=== PATIENT | male | born 1965 | race Caucasian/White ===

== ENCOUNTER 2018-07-06 15:39 | Inpatient (IN) | payer BC ==
[2018-07-06 15:59] LABS: PLATELET COUNT 266 10^3/uL (150-400)
[2018-07-06] MEDS ORDERED: ONDANSETRON 4 MG/2 ML VIAL IVP ONE (16:03)
--- NOTE | 2018-07-06 16:06 | EDPHY ---
H & P Time Seen by Provider: 07/06/18 15:50 HPI/ROS: CHIEF COMPLAINT: Chest pain HISTORY OF PRESENT ILLNESS: 52-year-old male presents with chest pain. Sudden onset of substernal chest pain at 2:00 p.m. while driving. The pain has been moderate and persistent since onset. Associated with shortness of breath. Took 325 aspirin prior to arrival without relief. No change with exertion, deep inspiration, movement or with eating. No dizziness, diaphoresis or other associated symptoms. Exercises regularly, most recently this morning. No prior similar symptoms. Cardiac risk factors negative. Nonsmoker; no family history; no hypertension, diabetes or hypercholesterolemia. REVIEW OF SYSTEMS: complete 10 point ROS reviewed and is negative except for the noted elements in the HPI Source: Patient - Social History Alcohol Use: Sober Drug Use: None Additional Social History: - Physical Exam Exam: General Appearance: Alert, pleasant, appears uncomfortable Eyes: Pupils equal and round, no conjunctival pallor or injection ENT, Mouth: Mucous membranes moist Neck: Normal inspection Respiratory: Lungs are clear to auscultation Cardiovascular: Regular rate and rhythm, no murmur gallop or rub Gastrointestinal: Abdomen is soft and nontender Neurological: A&O, nonfocal exam Skin: Warm and dry, no rash Extremities: Nontender, no pedal edema Psychiatric: Anxious Constitutional: Initial Vital Signs Temperature (C) 36.9 C 07/06/18 15:59 Heart Rate 76 07/06/18 15:59 Respiratory Rate 16 07/06/18 15:59 Blood Pressure 167/102 H 07/06/18 15:59 O2 Sat (%) 100 07/06/18 15:59 O2 Delivery Mode Room Air O2 (L/minute) 2 Allergies/Adverse Reactions: No Known Allergies Allergy (Unverified 07/06/18 16:17) Home Medications: Medication Instructions Recorded NK [No Known Home Meds] 07/06/18 Medical Decision Making - Diagnostics EKG Interpretation: EKG interpreted by me reveals normal sinus rhythm, rate 77, poor R-wave progression, prominent T-waves in lead V3 and V4, concerning for hyper acute T- waves. Interpretation: Abnormal EKG Repeat EKG is unchanged. Imaging Results: Imaging Impressions Chest X-Ray 07/06/18 15:52 Impression: Normal chest x-ray. Imaging: I viewed and interpreted images myself ED Course/Re-evaluation: This patient presents with substernal chest pain. Stat EKG reveals poor R-wave progression with prominent T-waves anteriorly, c/w hyperacute T waves. Concerning for acute coronary syndrome. Morphine and Zofran IV given for pain control. Feels better after morphine. Repeat EKG is unchanged. Chest x-ray is unremarkable. Stat echocardiogram reveals normal wall motion. Dr. Shadi Henao was consulted because of EKG changes and chest pain, concern for ACS. Dr. Henao saw the patient in the emergency department and plans to take him to the cardiac catheterization lab. All the laboratory/radiologic results and the plan were discussed with the patient and his . I spent a total of 35 minutes of critical care time in obtaining history, performing a physical exam, bedside monitoring of interventions, collecting and interpreting tests and discussion with consultants but not including time spent performing procedures. Organ at risk: Cardiac Differential Diagnosis: Differential diagnosis includes though it is not limited to pneumonia, pneumothorax, pulmonary embolism, aortic dissection, pericarditis, acute coronary syndrome. - Data Points Laboratory Results: Laboratory Results 07/06/18 15:45 07/06/18 15:45 07/06/18 07/06/18 07/06/18 15:55 15:45 15:45 WBC RBC Hgb Hct MCV MCH MCHC RDW Plt Count MPV Neut % (Auto) Lymph % (Auto) [place] % (Auto) Eos % (Auto) Baso % (Auto) Nucleat RBC Rel Count Absolute Neuts (auto) Absolute Lymphs (auto) Absolute Monos (auto) Absolute Eos (auto) Absolute Basos (auto) Absolute Nucleated RBC Immature Gran % Immature Gran # D-Dimer Sodium Potassium Chloride Carbon Dioxide Anion Gap BUN Creatinine Estimated GFR Glucose Hemoglobin A1c 5.4 % % (4.0-6.0) Estim Average Glucose 108 mg/dL mg/dL (68-126) Calcium POC Troponin I 0.01 ng/mL ng/mL (0.00-0.08) NT-Pro-B Natriuret Pep Triglycerides 88 mg/dL mg/dL (40-150) Cholesterol 221 mg/dL H mg/dL (140-220) Cholesterol Risk Factr 0.8 (0.2-1.0) LDL Cholesterol, Calc 146 mg/dL H mg/dL (80-100) LDL Risk Factor 1.0 (0.2-1.0) VLDL Cholesterol 18 mg/dL mg/dL (8-25) Non-HDL Cholesterol 164 mg/dL H mg/dL (90-129) HDL Cholesterol 57 mg/dL mg/dL (40-65) LDL/HDL Ratio 2.57 RATIO RATIO (1.00-3.64) Cholesterol/HDL Ratio 3.88 RATIO RATIO (1.00-4.97) 07/06/18 07/06/18 07/06/18 15:45 15:45 15:45 WBC 13.70 10^3/uL H 10^3/uL (3.80-9.50) RBC 5.13 10^6/uL 10^6/uL (4.40-6.38) Hgb 16.6 g/dL g/dL (13.7-17.5) Hct 45.4 % % (40.0-51.0) MCV 88.5 fL fL (81.5-99.8) MCH 32.4 pg pg (27.9-34.1) MCHC 36.6 g/dL g/dL (32.4-36.7) RDW 11.8 % % (11.5-15.2) Plt Count 266 10^3/uL 10^3/uL (150-400) MPV 9.2 fL fL (8.7-11.7) Neut % (Auto) 77.9 % H % (39.3-74.2) Lymph % (Auto) 16.6 % % (15.0-45.0) [place] % (Auto) 4.7 % % (4.5-13.0) Eos % (Auto) 0.1 % L % (0.6-7.6) Baso % (Auto) 0.4 % % (0.3-1.7) Nucleat RBC Rel Count 0.0 % % (0.0-0.2) Absolute Neuts (auto) 10.69 10^3/uL H 10^3/uL (1.70-6.50) Absolute Lymphs (auto) 2.27 10^3/uL 10^3/uL (1.00-3.00) Absolute Monos (auto) 0.64 10^3/uL 10^3/uL (0.30-0.80) Absolute Eos (auto) 0.01 10^3/uL L 10^3/uL (0.03-0.40) Absolute Basos (auto) 0.05 10^3/uL 10^3/uL (0.02-0.10) Absolute Nucleated RBC 0.00 10^3/uL 10^3/uL (0-0.01) Immature Gran % 0.3 % % (0.0-1.1) Immature Gran # 0.04 10^3/uL 10^3/uL (0.00-0.10) D-Dimer < 0.27 ug/mLFEU ug/mLFEU (0.00-0.50) Sodium 139 mEq/L mEq/L (135-145) Potassium 4.0 mEq/L mEq/L (3.5-5.2) Chloride 102 mEq/L mEq/L (97-110) Carbon Dioxide 22 mEq/l mEq/l (22-31) Anion Gap 15 mEq/L H mEq/L (6-14) BUN 15 mg/dL mg/dL (7-23) Creatinine 1.0 mg/dL mg/dL (0.7-1.3) Estimated GFR > 60 Glucose 130 mg/dL H mg/dL (70-100) Hemoglobin A1c Estim Average Glucose Calcium 10.0 mg/dL mg/dL (8.5-10.4) POC Troponin I NT-Pro-B Natriuret Pep 41 pg/mL pg/mL (0-125) Triglycerides Cholesterol Cholesterol Risk Factr LDL Cholesterol, Calc LDL Risk Factor VLDL Cholesterol Non-HDL Cholesterol HDL Cholesterol LDL/HDL Ratio Cholesterol/HDL Ratio Medications Given: Metoprolol Tartrate (Lopressor) 12.5 mg PO BID ENID Stop: 01/02/19 20:59 Last Admin: 07/06/18 20:27 Dose: 12.5 mg Morphine Sulfate (Morphine) 1 - 2 mg IVP Q1HR PRN PRN Reason: Pain, Severe Unable to Take PO Stop: 07/16/18 18:10 Last Admin: 07/06/18 19:45 Dose: 2 mg Discontinued Medications Aspirin Buffered (Aspirin Ec) 325 mg PO ONCE ONE Stop: 07/06/18 18:29 Last Admin: 07/06/18 20:28 Dose: 325 mg Morphine Sulfate (Morphine) 4 mg IVP EDNOW ONE Stop: 07/06/18 16:04 Last Admin: 07/06/18 16:09 Dose: 4 mg Ondansetron HCl (Zofran) 4 mg IVP EDNOW ONE Stop: 07/06/18 16:04 Last Admin: 07/06/18 16:09 Dose: 4 mg Ticagrelor (Brilinta) 180 mg PO ONCE ONE Stop: 07/06/18 18:29 Last Admin: 07/06/18 20:28 Dose: 180 mg Point of Care Test Results: Chemistry 07/06/18 15:55 POC Troponin I 0.01 ng/mL ng/mL (0.00-0.08) Departure - Departure Disposition: To OP Cath/Surgery Clinical Impression: Acute coronary syndrome Condition: Serious
[2018-07-06] MEDS ORDERED: MIDAZOLAM 2 MG/2 ML VIAL ONE ×2 (17:12→17:43)
[2018-07-06] MEDS ORDERED: LIDOCAINE 1% 300 MG/30 ML SDV ONE (17:12)
[2018-07-06] MEDS ORDERED: fentaNYL 100 MCG/2 ML INJ ONE ×2 (17:12→17:43)
[2018-07-06] MEDS ORDERED: IOPAMIDOL (ISOVUE-370) 150 ML BTL IV ONE (17:13)
[2018-07-06] MEDS ORDERED: BIVALIRUDIN 250 MG/5 ML VIAL IV ONE (17:42)
[2018-07-06] MEDS ORDERED: EPTIFIBATIDE 200 MG/100 ML BOTTLE IV ONE (17:52)
[2018-07-06] MEDS ORDERED: OXYCODONE/APAP 5/325 TAB PO PRN (18:11)
[2018-07-06] MEDS ORDERED: ONDANSETRON DISINTEGRATING 4 MG TAB PO PRN (18:11)
[2018-07-06] MEDS ORDERED: ACETAMINOPHEN 325 MG TAB PO PRN (18:11)
[2018-07-06] MEDS ORDERED: ONDANSETRON 4 MG/2 ML VIAL IVP PRN (18:11)
[2018-07-06] MEDS ORDERED: 1/2 NS 1,000 ML IV SCH (18:15)
[2018-07-06] MEDS ORDERED: ASPIRIN EC 325 MG TAB PO ONE (18:28)
[2018-07-06] MEDS ORDERED: TICAGRELOR 90 MG TAB PO ONE (18:28)
[2018-07-06] MEDS ORDERED: NITROGLYCERIN 0.4 MG BTL SL PRN (18:28)
[2018-07-06] MEDS ORDERED: ATROPINE SULFATE 1 MG/10 ML SYR IVP PRN (18:28)
[2018-07-06] MEDS ORDERED: TICAGRELOR 90 MG TAB ONE (18:29)
[2018-07-06] MEDS: METOPROLOL TARTRATE 25 MG TAB PO SCH (20:27)
--- NOTE | 2018-07-06 21:00 | CPEKG ---
Test Reason : OPEN Blood Pressure : / mmHG Vent. Rate : 075 BPM Atrial Rate : 075 BPM P-R Int : 171 ms QRS Dur : 084 ms QT Int : 415 ms P-R-T Axes : 051 061 039 degrees QTc Int : 464 ms Sinus rhythm poor R wave progression prominent T waves in leads V3 and V4 Confirmed by Gabby Haider ([id number]) on 07/06/2018 9:00:03 PM Referred By: Confirmed By:Gabby Haider
[2018-07-07 04:58] LABS: PLATELET COUNT 229 10^3/uL (150-400)
[2018-07-07] MEDS ORDERED: TICAGRELOR 90 MG TAB PO SCH (06:30)
--- NOTE | 2018-07-07 06:54 | GCON ---
DATE OF CONSULTATION: 07/06/2018 INDICATIONS: Chest pain. HISTORY OF PRESENT ILLNESS: The patient is a pleasant 52-year-old male seen in consultation in the e mergency department. At his baseline, he is very healthy. He is active and he does not take any med ications. He comes to the emergency department with complaints of chest pain. He states that he was feeling well until about 3 hours prior to admission. At that time, he developed the abrupt onset of precordial chest pressure, described as a heavy sensation as if "somebody was sitting on my chest." He had radiation of his symptoms up to the throat and both jaws. He thinks he may have some sensati on of both shoulders and between the shoulder blades. With this, he became very short of breath. He had a sensation as if "something was terribly wrong." He took an aspirin and tried to lay down at h ome. There, he continued to have symptoms and mild dyspnea. As a result, he came to the emergency d epartment here. On arrival here, he was hemodynamically stable. His blood pressure was high at 167/ 102 with a mean of 123 and a heart rate of 76 beats per minute with oxygen saturations on 2 L 100%. He was afebrile. His initial electrocardiogram done at 1547 demonstrated sinus rhythm with late R-wa ve progression and nonspecific ST and T changes. A followup ECG done at 4:31 also demonstrated sinus rhythm with loss of the anterior voltage, suspicious for an anterior infarct, age undetermined. He states he continues to have ongoing chest discomfort. His initial troponin was noted to be negative. His N-terminal proBNP was 41. A basic metabolic panel, D-dimer were normal. His CBC was significa nt for mild leukocytosis at 13.7. Chest x-ray was unremarkable. A bedside echo was done. On that echocardiogram, there was a suggestion of mild subtle inferoseptal hypokinesis. Visualization of the aortic valve revealed that it was trileaflet. The ascending aorta was normal caliber as was the descending aorta. Limited images of the arch indicated that he had a normal arch diameter as well. REVIEW OF SYSTEMS: A full 10-point review of systems was performed and was otherwise negative. PAST MEDICAL HISTORY: He states he is healthy, with no medical problems. MEDICATIONS: He takes no medications. SURGICAL HISTORY: Has no surgical history. SOCIAL HISTORY: He is , accompanied by his . They have 4 daughters together. 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 He does not smoke. He drinks alcohol socially. Likes to exercise r egularly and usually does so on a daily basis. FAMILY HISTORY: Is not significant for premature atherosclerosis. PHYSICAL EXAMINATION: VITALS: On my arrival, his blood pressure is 166/19 with a heart rate of 82 a nd room air saturations of 98%. GENERAL: He was an anxious-appearing male in mild distress complain ing of chest discomfort. HEENT: Normocephalic, atraumatic. He has anicteric sclerae. Oropharynx u nremarkable. His carotids are 2+ bilaterally with no carotid bruits. He has no JVD or adenopathy. RESPIRATORY: He is breathing easily, resting comfortably, using no accessory muscles. On auscultati on, has clear lung bourgeois bilaterally. CARDIAC: Precordial inspection is unremarkable. PMI is nond isplaced. On auscultation, he has a regular rate and rhythm without murmurs, gallops, or rubs. ABDO MEN: Soft, nontender with normoactive bowel sounds. He has no masses or hepatosplenomegaly. VASCUL ATURE: He has 2+ radial dorsal pedal and posterior tibial pulses. He has 2+ femoral arterial pulses . NEUROLOGIC: He is alert and oriented with a pleasant mood and affect. Moves all 4 limbs spontane ously. DATA BASE: See HPI. IMPRESSION: The patient is 52 years old, with a benign cardiovascular risk factor in overall good he alth who presents to the emergency department with a very concerning history of abrupt onset chest di scomfort. He is having ongoing symptoms of chest discomfort currently. He has an abnormal ECG indic ating the possibility of a previous anterior infarct. He does not, however, have dynamic ST or T tejal nges. Bedside echocardiogram does not suggest findings consistent with a dissection. PLAN: Given the patient's ongoing chest discomfort, he will be brought to the cardiac catheterizatio n laboratory. Further recommendations will be made pending the outcome of that study. /[id number]/MODL
--- NOTE | 2018-07-07 06:55 | CPIP ---
DATE OF PROCEDURE: 07/06/2018 PROCEDURES: 1. Coronary angiography. 2. Stenting of left anterior descending coronary artery with Synergy drug-eluting stent. INDICATION: Acute coronary syndrome. ACCESS AND CORONARY ANGIOGRAPHY: Access and coronary angiography were performed by Dr. Shadi Henao. Coronary angiography was notable for single-vessel disease involving the proximal left anterior emily cending coronary artery. I was asked to perform percutaneous coronary intervention of this lesion. PERCUTANEOUS CORONARY INTERVENTION: Left anterior descending coronary artery: A 6-Hebrew EBU 3.5 ca theter was advanced to the left main coronary artery and images obtained. Angiography confirmed the presence of a 99% stenosis of the proximal left anterior descending coronary artery representing an a cute thrombotic plaque. A Luge wire was placed in the distal vessel and position verified by angiogr aphy. Thrombectomy was performed on 3 occasions. Followup angiography demonstrated residual stenosi s but significant reduction in thrombus burden. A 4.0 x 28 Synergy drug-eluting stent was then place d across the lesion and deployed. Followup angiography demonstrated LIZETH-3 flow with no residual gregg nosis. COMPLICATIONS: None. CONCLUSIONS: 1. Single-vessel coronary artery disease involving the left anterior descending coronary artery. 2. Status post successful thrombectomy and stent placement in the proximal left anterior descending coronary artery. /[id number]/MODL
[2018-07-07] MEDS: TICAGRELOR 90 MG TAB PO SCH ×2 (08:14→19:47)
[2018-07-07] MEDS: ASPIRIN EC 81 MG TAB PO SCH (08:14)
[2018-07-07] MEDS: METOPROLOL TARTRATE 25 MG TAB PO SCH ×2 (08:19→19:47)
--- NOTE | 2018-07-07 10:29 | PDCARPN ---
Cardiology Progress Note Chief Complaint: NSTEMI Assessment/Plan: Assessment: 52-y/o M with no significant PMH p/w cp starting 07/06. Noted precordial chest pressures 3 hours [employer]. Radiated to both jaws and associated with shortness of breath. Bedside echo showed subtle inferoseptal HK and echo showed some loss of R wave in V1-V2. Due to presentation and ongoing pain, he proceeded to [facility]. #. NSTEMI: as evidenced by unstable symptoms and elevated troponin s/p PTCA/stenting and thrombectomy to 99% pLAD lesion no further pain #. CAD: s/p PCI LAD continue DAPT, BB Atorvastatin initiated #. dyslipidemia: LDL 146 Atorvastatin 40 mg daily started CMP/lipids in 6 weeks #. Elevated blood pressures: monitor for now prior to increasing any doses #. NSVT: 4-5 beat runs continue telemetry and BB #. LOS: inpatient due to recent NSTEMI / possible D/C tomorrow #. DVT ppx: early ambulation Subjective: No further pain. No discomfort at groin site. Objective: Vital Signs (8 Hrs) Temp Pulse Resp BP Pulse Ox 07/07/18 08:00 59 L 16 132/74 H 97 07/07/18 06:00 53 L 13 139/81 H 96 07/07/18 05:00 63 17 153/85 H 98 07/07/18 04:00 99.1 F 56 L 15 122/73 H 96 07/07/18 03:00 53 L 12 117/66 96 Intake/Output (24 Hrs) 07/06/18 07/07/18 07/08/18 05:59 05:59 05:59 Intake Total 2366 Output Total 2675 Balance -309 Intake: Oral (ml) 1250 IV Intake (ml) 500 IV Infused (ml) 616 1/2 Ns 1,000 ml @ 75 mls/ 616 hr IV CONT ENID Rx#: [id number] Output: Urine (ml) 2675 Urinal 2675 Other: Weight 81.647 kg Output Comment Urinal not all urine accounted for-urinal spilled Number of Voids Urinal 1 Result Diagrams: 07/07/18 04:15 07/07/18 04:15 Cardiac Labs: Cardiac Lab Results (72 Hrs) 07/07/18 07/07/18 08:30 00:10 Troponin I 18.700 H 10.400 H EKG: SR, loss of R wave in V1/V2 Telemetry: SR, 4 and 5-beat VT - Physical Exam Constitutional: healthy appearing, no apparent distress Eyes: PERRL, anicteric sclera Ears, Nose, Mouth, Throat: moist mucous membranes Cardiovascular: regular rate and rhythm, no murmurs Peripheral Pulses: 2+: dorsalis-pedis (R), dorsalis-pedis (L) Respiratory: clear to auscultate bilat, no crackles Gastrointestinal: normoactive bowel sounds, no tenderness Skin: no rashes, warm, no edema Musculoskeletal: no muscular tenderness Neurologic: AAOx3 Psychiatric: cooperative, interactive ICD10 Worksheet Patient Problems: Problems Problem Status Onset Acute coronary syndrome Acute
[2018-07-07] MEDS: ATORVASTATIN CALCIUM 40 MG TAB PO SCH (11:05)
--- NOTE | 2018-07-07 12:32 | PDMN ---
Medical Necessity Medical necessity: Pt meets inpt criteria per MD order and MCG M-230, Myocardial Infarction, 2 days, 52 y/o admitted w/ACS, +NSTEMI required same day PTCA w/stent to LAD coronary artery.
--- NOTE | 2018-07-07 12:51 | ECHO ---
[email or web address] [address] [address] Main: [phone] Fax: Transthoracic Echocardiogram Name: IMELDA SHULTZ MR#: [id number] Study Date: 07/07/2018 Study Time: 11:50 AM Date of : 1965 Age: 52 year(s) Height: 182.9 cm (72 in.) Weight: 81.65 kg (180 lb.) BSA: 2.04 m2 Gender: Male Examination: Limited Echo Indication: Post Cath, Stent Image Quality: Contrast: Requested by: Inez Coy BP: 135 mmHg/83 mmHg Heart Rate: Rhythm: Normal sinus rhythm Indication: Post Cath, Stent Procedure Staff Patient Monitor: Jimmy Mast RDCS Reading Physician: Frandy Orozco MD Requesting Provider: Conclusions: Normal size left ventricle. No LV hypertrophy. Normal global systolic LV function. No regional wall motion abnormality. This is a limited echocardiogram to evalaute LV function post PCI. Measurements: Chambers Valvular Assessment AV/MV Valvular Assessment TV/PV Normal Normal Normal Name Value Range Name Value Range Name Value Range Continued Measurements: Findings: Left Ventricle: Normal size left ventricle. No LV hypertrophy. Normal global systolic LV function. No regional wall motion abnormality. Exam Comments: This is a limited echo to evaluate LV function and wall motion. The LV function is normal with no significant wall motion abnormalities.. (No Signature Object) Patient: IMELDA SHULTZ Study Date: 07/07/2018 Page 1 of 1 11:50 AM [id number]
--- NOTE | 2018-07-07 13:09 | ASMTCMCOM ---
CM Note CM Note Notes: Pt is a 52 y/o man admitted for chest pain. Pt will most likely d/c independent when medically stable. No therapies ordered at this time. CM available for changes. Plan: Independent w/ supportive Date Signed: 07/07/2018 01:08 PM Electronically Signed By:ANJALI Johnson
--- NOTE | 2018-07-07 17:42 | CPEKG ---
Test Reason : OPEN Blood Pressure : / mmHG Vent. Rate : 059 BPM Atrial Rate : 060 BPM P-R Int : 173 ms QRS Dur : 082 ms QT Int : 440 ms P-R-T Axes : 049 066 055 degrees QTc Int : 436 ms Sinus rhythm Septal Q wave Confirmed by Mao Brand ([id number]) on 07/07/2018 5:41:55 PM Referred By: Confirmed By:Mao Brand
[2018-07-07] MEDS: LISINOPRIL 5 MG TAB PO SCH (18:12)
[2018-07-08 07:13] VITALS: BP 101/53
[2018-07-08] MEDS: ASPIRIN EC 81 MG TAB PO SCH (08:30)
[2018-07-08] MEDS: ATORVASTATIN CALCIUM 40 MG TAB PO SCH (08:30)
[2018-07-08] MEDS: LISINOPRIL 5 MG TAB PO SCH (08:30)
[2018-07-08] MEDS: TICAGRELOR 90 MG TAB PO SCH (08:30)
[2018-07-08] MEDS: METOPROLOL TARTRATE 25 MG TAB PO SCH (08:51)
--- NOTE | 2018-07-08 12:42 | ASDISCHSUM ---
Discharge Information Plan Status:Home with No Needs Medically Cleared to Leave:07/07/2018 Discharge Date:07/07/2018 CM D/C Disposition:Home, Routine, Self-Care ADT D/C Disposition:Home, Routine, Self-Care Projected Discharge Date:07/07/2018 Transportation at D/C: Discharge Delay Reason: Follow-Up Date:07/07/2018 Discharge Slot: Final Diagnosis: Placement Information Patient Contact Information Contact Name:JEAN PIERRE Relationship: Address:[address] [place] Alternate Phone: [facility]/Zip Code:[place] [address] Email: Financial Information Financial Class:BCOP Primary Plan Desc: OUT OF STATE [facility] Primary Plan Number:[id number] Secondary Plan Desc: Secondary Plan Number: Assessment Information BC CM Progress Note CM Note CM Note Notes: Pt is a 52 y/o man admitted for chest pain. Pt will most likely d/c independent when medically stable. No therapies ordered at this time. CM available for changes. Plan: Independent w/ supportive Date Signed: 07/07/2018 01:08 PM Electronically Signed By:ANJALI Johnson LACE LACE Length of stay for Answers: 1 day current admission Acuity / Level of Answers: Yes Care: Did the patient have an inpatient admission? Comorbidities - select Answers: Coronary Artery Disease all that apply Previous myocardial infarction # of Emergency department Answers: 1-2 visits in the last 6 months Score: 8 Date Signed: 07/08/2018 12:40 PM Electronically Signed By:Alberta Brothers RN Case Management Discharge Plan Note Case Management Discharge Discharge Order Complete? Answers: Yes Patient to Obtain Answers: via Family Medications Transportation Arranged Answers: Family/Friends Discharge Comments Notes: 07/08/2018 Case Management Note Pt to discharge independent with follow up as directed. Date Signed: 07/08/2018 12:41 PM Electronically Signed By:Alberta Brothers RN Intervention Information
--- NOTE | 2018-07-09 06:17 | CPEKG ---
Test Reason : OPEN Blood Pressure : / mmHG Vent. Rate : 077 BPM Atrial Rate : 078 BPM P-R Int : 173 ms QRS Dur : 085 ms QT Int : 425 ms P-R-T Axes : 052 055 045 degrees QTc Int : 482 ms Sinus rhythm Anteroseptal infarct, old Confirmed by Mao Brand ([id number]) on 07/09/2018 6:16:33 AM Referred By: Confirmed By:Mao Brand
--- NOTE | 2018-07-09 10:45 | GDS ---
ADMIT DIAGNOSES: 1. Chest pain. 2. Non ST-elevation myocardial infarction. DISCHARGE DIAGNOSES: 1. Coronary artery disease. 2. Left anterior descending stent placement. COURSE OF HOSPITALIZATION: This gentleman was in his usual state of health until 3 hours prior to pr esenting to the emergency room with ongoing chest pain. The symptoms felt like somebody was sitting on his chest and radiating into his throat and jaw. Initial EKGs showed late R-wave progression, non specific ST and T-wave changes. The following EKG approximately an hour later showed sinus rhythm wi th loss of the anterior voltage which was suspicious for an anterior infarct. He continued to have o ngoing chest pain. Troponins were negative. It was decided to take him to the cardiac laborer cutting tool to f ирина evaluate the etiology of his chest pain. He was taken to the laborer cutting tool where Dr. Shadi Henao initiated the cardiac angiogram finding blockage in the LAD. Dr. Frandy Orozco then intervened confirm ing a presence of a 99% stenosis of the proximal left anterior descending coronary artery, representi ng an acute thromboembolic plaque. Thrombectomy was done. Followup angiography showed residual sten osis, but significant reduction in the thrombus burden. A Synergy drug-eluting stent was placed acro ss the lesion and deployed. Followup angiography demonstrated LIZETH-3 flow with no residual stenosis. Conclusion: (1) Single-vessel coronary artery disease involving left anterior descending coronary artery. (2) Status post successful thrombectomy and stent placement in the proximal left anterior descending coronary artery. There were no complications. He was taken to the PCU for overnight observation where he has done wel l. His telemetry shows a sinus bradycardia with a rate of 58. He is up and ambulating in his room w ith no groin site problems. He has no bleeding, induration, or pain with minimal ecchymosis at the r ight groin site. At this time, he is stable for discharge. MEDICATIONS: He will go home on Tylenol 325 mg every 4 hours as needed for pain not to exceed 3000 m g a day, aspirin enteric-coated 81 mg daily, Lipitor 40 mg daily, lisinopril 5 mg daily, Lopressor 12 .5 mg twice daily, Brilinta 90 mg twice daily. PHYSICAL EXAMINATION: VITAL SIGNS: On day of discharge, blood pressure 101/53, heart rate 58 and re gular, temperature 36.9. Telemetry shows a sinus rhythm with a rate of 77 at time of my visit. CARD IAC: Heart rate regular. No murmurs, rubs, gallops. CHEST: Lungs sounds are clear to auscultation . No wheezes, rales, or rhonchi. Groin site is intact. Right groin with no bleeding, induration, o r pain. EXTREMITIES: Peripheral pulses bilaterally are 2+. DISCHARGE PLAN: He will be discharged home on Brilinta for anti-platelet therapy and aspirin 81 mg d aily. All other medications as indicated previously. He does understand the importance of the Brili nta with a possible side effect of shortness of breath, which he will report to us should he have any . Post cardiac angiogram instructions have been given both verbally and written. He will call the o ffice should he have any groin site bleeding or hematoma. He will follow up with Dr. Shadi Henao in 10 days. The office will call with this appointment. At this time, he currently is stable for disc kettering health. /[id number]/MODL
--- NOTE | 2018-07-13 16:20 | ECHO ---
[email or web address] [address] [address] Main: [phone] Fax: Transthoracic Echocardiogram Name: IMELDA SHULTZ MR#: [id number] Study Date: 07/06/2018 Study Time: 04:47 PM Date of : 1965 Age: 52 year(s) Height: 182.9 cm (72 in.) Weight: 81.65 kg (180 lb.) BSA: 2.04 m2 Gender: Male Examination: Echo Indication: Acute Chest Pain Image Quality: Contrast: Requested by: Gabby Haider BP: 154 mmHg/102 mmHg Heart Rate: Rhythm: Normal sinus rhythm Indication: Acute Chest Pain Procedure Staff News Videotape Editor: Jimmy Mast RDCS Reading Physician: Yohan Pat MD Requesting Provider: Conclusions: Normal size left ventricle. EF is 66 %. There is subtile mid anteroseptal hypokinesis. Normal appearing valvular structures. Trivial aortic valve regurgitation. No pericardial effusion. No prior study for comparison. Measurements: Chambers Valvular Assessment AV/MV Valvular Assessment TV/PV Normal Normal Normal Name Value Range Name Value Range Name Value Range Ao Brianna (MM): 3.3 cm (2.2 cm-3.7 AV Vmax: 1.59 m/s (1 m/s-1.7 PV Vmax: 1.14 m/s (0.6 m/s-0.9 cm) m/s) m/s) IVSd (2D): 0.9 cm (0.6 cm-1.1 AV maxP mmHg ( - ) PV PGmax: 5 mmHg ( - ) cm) LVOT Vmax: 0.94 m/s (0.7 m/s-1.1 LVDd (2D): 5.4 cm (4.2 cm-5.9 m/s) cm) AR (PHT): 603 ms ( - ) LVDs (2D): 3.4 cm (2.1 cm-4 MV E Vmax: 0.66 m/s ( - ) cm) MV A Vmax: 0.62 m/s ( - ) LVPWd (2D): 0.9 cm (0.6 cm-1 MV E/A: 1.06 ( - ) cm) LVEF (2D): 66 (>=54 %) RVDd(2D): 2.6 cm (1.9 cm-3.8 cmmm) Continued Measurements: Chambers Valvular Assessment AV/MV Name Value Name Value Patient: IMELDA SHULTZ Study Date: 07/06/2018 Page 1 of 2 04:47 PM LADs Lon.4 cm MV E/E' Septal: 8.70 LA Area: 13.3 cm2 MV E/E' Lateral: 4.80 LA Volume: 35 ml AR Vmax: 3.23 cm/s LA Volume Index: 17.2 ml/m2 Findings: Left Ventricle: Normal size left ventricle. No LV hypertrophy. Normal global systolic LV function. EF is 66 %. Normal diastolic LV function. There is subtile mid anteroseptal hypokinesis. Right Ventricle: Normal size right ventricle. Left Atrium: The left atrium is normal in size. Right Atrium: The right atrium is normal in size. Mitral Valve: The mitral valve is normal in appearance and function. Aortic Valve: The aortic valve is tri-leaflet. Trivial aortic valve regurgitation. Tricuspid Valve: The tricuspid valve is normal in appearance and function. Pulmonic Valve: The pulmonic valve is normal in appearance and function. Aorta: The aorta is normal. Pericardium: No pericardial effusion. (No Signature Object) Patient: IMELDA SHULTZ Study Date: 07/06/2018 Page 2 of 2 04:47 PM [id number]
== END 2018-07-08 12:44 | disposition home or self-care (01) | DRG 247 ==
LOC: F2N 18:31 → F2W 07-07 11:26
PROVIDERS: ADMIT Internal Medicine Cardiovascular Disease; ATTEND Internal Medicine Cardiovascular Disease
PROC: 027034Z Dilation of Coronary Artery, One Artery with Drug-eluting Intraluminal Device, Percutaneous Approach (ICD-10-PCS; principal; 2018-07-06)
DX: I21.9 Acute myocardial infarction, unspecified (principal); I25.10 Atherosclerotic heart disease of native coronary artery without angina pectoris
CPT/HCPCS: 84484-ER; 96374; C1757; C1769; C1874; C1887; C9600; J0461; J0583; J1327; J1644; J2250; J2270; J2405; J3010; Q9967